=== PATIENT | female | born 1995 | race Caucasian/White ===

== ENCOUNTER 2019-10-24 16:32 | Emergency (ER) | payer OTHER, SELFPAY ==
[2019-10-24 16:35] VITALS: BP 134/70; PULSE 94; RESP 16; TEMP 36.1; O2SAT 100
--- NOTE | 2019-10-24 16:56 | ED.SKABFB ---
HPI - Skin/Abscess/Foreign Bdy General Chief complaint: Skin/Abscess/Foreign Body Stated complaint: Rash on back Source: patient Mode of arrival: ambulatory Limitations: no limitations History of Present Illness HPI narrative: 24-year-old female presents to urgent with complaints of erythematous rash to her back, chest and abdomen for the past 2 weeks. Patient reports that she did start with a large area rash to her back. Patient reports that the rash does intermittently itch. Patient has been applying [id number] hydrocortisone cream with no relief. Patient denies new medications, new soaps or new detergents. complaint: rash Onset (ago): week(s) (2) Location: chest and back Context: none Associated symptoms: denies other symptoms Treatments prior to arrival: OTC topical medication Related Data Allergies Allergy/AdvReac Type Severity Reaction Status Date / Time NKDA Allergy Mild Uncoded 09/16/09 12:22 Review of Systems Review of Systems: All systems reviewed & are unremarkable except as noted in HPI and below Constitutional: Constitutional: Denies chills, Denies fatigue and Denies fever(s) ENT: Denies dysphagia, Denies dizziness, Denies epistaxis and Denies nasal congestion Cardiovascular: Cardiovascular: Denies chest pain and Denies radiating jaw, neck or arm pain Respiratory: Respiratory: Denies cough, Denies dyspnea and Denies wheezing Gastrointestinal: Gastrointestinal: Denies abdominal pain, Denies diarrhea, Denies nausea and Denies vomiting Integumentary/Breasts: Skin/Breast: Reports rash and Denies skin ulcer Neurologic: Denies dizziness, Denies syncope, Denies headache(s) and Denies weakness PMFSH Social History Social History (Updated 10/24/19 @ 16:58 by Tanisha Dumont APN) Smoking status: Never smoker Exam Const: General: healthy appearing and no acute distress Nutritional Appearance: well nourished Orientation/consciousness: patient oriented x3 Limitations: no limitations Neck: Neck: normal visual inspection and no lymphadenopathy Resp: Effort & Inspection: normal respiratory effort Auscultation: clear to auscultation bilaterally Cardio: Rate: regular rate Rhythm: regular rhythm Skin: General skin exam: normal color, no jaundice and no pallor Other: Scaly erythematous rash noted to back and torso region. There is 1 large patch of rash noted to patient's back likely representing herald patch. There is no necrotic tissue, streaking erythema or signs of infection noted. Extrem: General: normal to inspection Psych: Appearance: grossly normal Mental Status: mental status grossly normal Attitude: cooperative Thought content: Yes Normal thought content present Course Vital Signs Vital signs: Vital Signs Temperature 36.1 C L 10/24/19 16:35 Pulse Rate 94 10/24/19 16:35 Respiratory Rate 16 10/24/19 16:35 Blood Pressure 134/70 10/24/19 16:35 Pulse Oximetry 100 10/24/19 16:35 Temperature 36.1 C L 10/24/19 16:35 Pulse Rate 94 10/24/19 16:35 Respiratory Rate 16 10/24/19 16:35 Blood Pressure 134/70 10/24/19 16:35 Pulse Oximetry 100 10/24/19 16:35 MDM - Skin/Abscess/Foreign Bdy MDM Narrative Medical decision making narrative: Pityriasis rosea discussed with patient. She understands that rash is usually self-limiting. Some areas of the rash could possibly be dermatitis of patient will be placed on Medrol Dosepak to cover. Differential Diagnosis Differential diagnosis: Likely urticaria, cellulitis and eczema Critical Care Time Critical Care Time Critical Care Time: No Discharge Plan Discharge Clinical Impression: Pityriasis rosea Patient Disposition: Home, Self-Care Condition: Stable Instructions: Pityriasis rosea (ED) Additional Instructions: Take Medrol Dosepak as prescribed Follow-up with primary care provider if symptoms do not improve Proceed to the emergency room if symptoms worsen Patient Language: Czech Prescr
== END 2019-10-24 17:08 | disposition home or self-care (01) ==
PROVIDERS: Emergency Provider Nurse Practitioner Family
DX: L42 Pityriasis rosea (principal)
CPT/HCPCS: 99203; G0463